=== PATIENT | female | born 1995 | race Caucasian/White ===

== ENCOUNTER 2018-01-21 13:08 | Emergency (ER) | payer BC | END 2018-01-21 15:05 | disposition home or self-care (01) | LOC: FTE 13:08 | DX: M94.0 Chondrocostal junction syndrome [Tietze] (principal) | CPT/HCPCS: 71046; 99283-25 ==

== ENCOUNTER 2018-06-04 12:34 | Emergency (ER) | payer BC | END 2018-06-04 14:35 | disposition home or self-care (01) | LOC: FTE 12:34 | DX: L29.0 Pruritus ani (principal); K59.00 Constipation, unspecified | CPT/HCPCS: 99283 ==

== ENCOUNTER 2018-07-12 11:42 | Emergency (ER) | payer BC ==
[2018-07-12] MEDS: DIAZEPAM 5 MG TAB PO ×2 (12:38→12:40)
[2018-07-12] MEDS: KETOROLAC 60 MG INJ IM ×2 (12:38→12:43)
[2018-07-12] MEDS: IBUPROFEN 800 MG TAB PO (13:01)
== END 2018-07-12 14:01 | disposition home or self-care (01) ==
LOC: FTE 11:42
DX: M54.9 Dorsalgia, unspecified (principal)
CPT/HCPCS: 72072; 72100; 81025; 99283-25